=== PATIENT | female | born 1995 | race Caucasian/White ===

== ENCOUNTER 2022-07-24 10:24 | Emergency (ER) | payer BC, OTHER ==
[2022-07-24 11:41] LABS: HIV (1/2) Antibody/Antigen Non-Reactive (NonReactive); HIV 1/2 INDEX 0.05 S/CO (<1.00)
[2022-07-24 15:27] LABS: Hep C IgG Ab Non-Reactive (NonReactive); Hep C Index 0.06 S/CO (0-0.79)
[2022-07-24 15:35] LABS: HBSAB Concentration 19.37 mIU/mL; Hep B Surf AB Reactive (NonReactive)
== END 2022-07-24 10:53 | disposition home or self-care (01) ==
LOC: CSHERS 10:24
DX: Z77.21 Contact with and (suspected) exposure to potentially hazardous body fluids (principal)
CPT/HCPCS: 99283